=== PATIENT | male | born 1965 | race African-American/Black ===

== ENCOUNTER 2020-07-13 09:32 | Inpatient (IN) | payer SELFPAY ==
[2020-07-13] VITALS (7 sets, daily range): BP systolic 122–145; BP diastolic 72–90
[~2020-07-13] VITALS: Ht 170.2 cm; Wt 83.9 kg
[2020-07-13] MEDS ORDERED: SODIUM CHLORIDE 0.9% 1000ML 1,000 ML IV STA (10:04)
[2020-07-13] MEDS ORDERED: SODIUM CHLORIDE FLUSH 10 ML SYR INJ PRN (10:15)
[2020-07-13] MEDS ORDERED: SODIUM CHLORIDE 0.9% 1000ML 1,000 ML ONE (10:44)
--- NOTE | 2020-07-13 10:47 | Emergency Department Note ---
History of Present Illnes History of Present Illness Chief Complaint: urinating blood History of Present Illness This is a 54 year old male. was doing well until 2 months ago then intermitent problems urinating then 6 hours urinating blood. Historian: Patient Arrival Mode: Car History limited by: condition of the patient (normal) Assembler Musical Equipment Required: No Onset (how long ago): day(s) (2) Location: see above Radiation: Reports non-radiation Severity: moderate Onset quality: sudden Duration (how long): hour(s) (5) Timing of current episode: intermittent Progression: waxing and waning Chronicity: new Context: Denies recent illness, Denies recent surgery, Denies recent immobilization, Denies recent travel, Denies trauma/injury, Denies new medications, Denies hx of DVT/PE, Denies non-compliance w/ medications Relieving factors: none Exacerbating factors: none Associated symptoms: Reports denies other symptoms Treatments prior to arrival: none Past Medical/Family History Physician Review I have reviewed the patient's past medical and family history. Any updates have been documented here. Past Medical History Recent Fever: No Clinical Suspicion of Infectio: No New/Unexplained Change in Ment: No Other Medical History: Glaucoma Other Surgery: left arm surgery Social History Smoking Cessation: Never Smoker Counseling Performed: No Alcohol Use: Occasional Any Illegal Drug Use: No Physically hurt or threatened: No Other Any Pre-Existing Lines (PICC,: No Review of Systems Review of Systems Constitutional: Reports no symptoms EENTM: Reports no symptoms Cardiovascular: Reports no symptoms Respiratory: Reports no symptoms Gastrointestinal: Reports no symptoms Genitourinary: Reports as per HPI Musculoskeletal: Reports no symptoms Integumentary: Reports no symptoms Neurological: Reports no symptoms Psychological: Reports no symptoms Endocrine: Reports no symptoms Hematological/Lymphatic: Reports no symptoms Review of other systems: All other systems negative Physical Exam Related Data Allergies: Coded Allergies: No Known Allergies (Unverified , 07/13/20) Triage Vital Signs Vital Signs Date Time Temp Pulse Resp B/P (MAP) Pulse Ox O2 Delivery O2 Flow Rate FiO2 07/13/20 09:43 97.9 70 18 159/90 100 Room Air Vital signs reviewed: Yes Physical Exam CONSTITUTIONAL Constitutional: Present well-developed, Present well-nourished HENT HENT: Present normocephalic, Present atraumatic, Present oropharynx clear/moist, Present nose normal HENT L/R: Present left ext ear normal, Present right ext ear normal EYES Eyes: Reports PERRL, Reports conjunctivae normal NECK Neck: Present ROM normal, Present supple PULMONARY Pulmonary: Present effort normal, Present breath sounds normal CARDIOVASCULAR Cardiovascular: Present regular rhythm, Present heart sounds normal, Present capillary refill normal, Present normal rate GASTROINTESTINAL Abdominal: Present soft, Present nontender, Present bowel sounds normal GENITOURINARY Genitourinary: Present exam deferred SKIN Skin: Present warm, Present dry MUSCULOSKELETAL Musculoskeletal: Present ROM normal NEUROLOGICAL Neurological: Present alert, Present oriented x 3, Present no gross motor or sensory deficits PSYCHOLOGICAL Psychological: Present mood/affect normal, Present judgement normal Results Laboratory Lab results reviewed: Yes Laboratory comments ua= +large blood , coag= normal, cbc nl except 25, bmp and lft normal Imaging Imaging results reviewed: Yes Impressions [place] [address] Patient Name: REJI SOUZA MR #: [id number] : 1965 Age/Sex: 54/M Req #: [id number] Adm Physician: OSMAN PRATER MD Ordered by: TOMAS FAIRCHILD Report #: [id number] Location: [facility] Room[facility]Bed: [facility] Procedure: [id number] HOPD/CT ABD/PEL W/WO-HOPD Exam Date: 07/13/20 Exam Time: 1334 REPORT STATUS: Signed EXAM: CT Abdomen and Pelvis WITH contrast INDICATION: hematuria with/without iv contrast(hematuria protocol) COMPARISON: None. TECHNIQUE: Abdomen and pelvis were scanned utilizing a multidetector helical scanner from the lung base to the pubic symphysis after administration of IV contrast. Coronal and sagittal reformations were obtained. Routine protocol was performed. Scan was performed when during portal venous phase. IV CONTRAST: 100 mL of Isovue 370 ORAL CONTRAST: None COMPLICATIONS: None RADIATION DOSE: Total DLP: 1695 mGy*cm Estimated effective dose: (DLP x 0.015 x size factor) mSv CTDIvol has been reviewed. It is below the limits set by the Radiation Protocol Committee (RPC). Dose modulation, iterative reconstruction, and/or weight based adjustment of the mA/kV was utilized to reduce the radiation dose to as low as reasonably achievable. FINDINGS: LINES and TUBES: None. LOWER THORAX: There is bibasilar atelectasis. HEPATOBILIARY: There are multiple scattered too small to characterize hypodensities in the liver, likely benign. No biliary ductal dilation. GALLBLADDER: No radio-opaque stones or sludge. No wall thickening. SPLEEN: No splenomegaly. PANCREAS: No focal masses or ductal dilatation. ADRENALS: No adrenal nodules KIDNEYS/URETERS: Kidneys enhance symmetrically. No hydronephrosis. No cystic or solid mass lesions. No stones. There are no filling defects within the opacified ureters. GI TRACT: No abnormal distention, wall thickening, or evidence of bowel obstruction. Appendix is normal. PELVIC ORGANS/BLADDER: There is layering debris within the urinary bladder. The prostate gland is enlarged measuring approximately 6.1 x 6.0 cm and causing mass effect on the posterior urinary bladder. LYMPH NODES: No lymphadenopathy. VESSELS: Unremarkable. PERITONEUM / RETROPERITONEUM: No free air or fluid. BONES: There are mild degenerative changes in the spine. SOFT TISSUES: There is a left fat-containing inguinal hernia. Soft tissues otherwise normal. IMPRESSION: 1. No suspicious renal mass. No filling defects within the opacified collecting system and bilateral ureters. 2. Layering debris within the urinary bladder can be suggestive of urinary tract infection. 3. Prostatomegaly. Correlate for chronic urinary tract outlet obstruction which can be associated with hematuria. Signed by: Leena Carranza MD on 07/13/2020 2:02 PM Dictated By: LEENA CARRANZA MD 01 Transcribed By: TIERRA on 07/13/201401 Critical Care Time Comments i spoke to dr heaven putnam at approx 10am and he said to get a ct scan abd/pelvis without and with iv contrast. spoke to rubber belt splicer benji cheney(dr prater) at 1145hrs and accepts admission of pt. dr putnam notified of ct results Assessment & Plan Medical Decision Making MDM hematuria, coagulopathy, enlarged prostate Assessment & Plan Final Impression: (1) Gross hematuria (2) Enlarged prostate (3) Severe thrombocytopenia Depart Disposition: ADMITTED Last Vital Signs Date Time Temp Pulse Resp B/P (MAP) Pulse Ox O2 Delivery O2 Flow Rate FiO2 07/13/20 09:43 97.9 70 18 159/90 100 Room Air Medications in the ED Sodium Chloride 10 ml PRN PRN INJ IV SITE FLUSH; Start 07/13/20 at 10:15; Stop 08/12/20 at 10:14; Status UNV Sodium Chloride 1,000 ml @ 1,000 mls/hr Q1H STAT IV ; Start 07/13/20 at 10:04; Stop 07/13/20 at 11:03; Status UNV TOMAS FAIRCHILD Jul 13, 2020 10:47
[2020-07-13] MEDS ORDERED: IOPAMIDOL 370 MG/ML 200 ML INFUS..BTL INJ ONE (10:50)
[2020-07-13] MEDS ORDERED: SODIUM CHLORIDE 0.9% 250ML 250 ML ONE ×2 (10:50→22:15)
--- NOTE | 2020-07-13 11:04 | NUR ---
urine culture collected and sent to the lab
[2020-07-13] MEDS ORDERED: ONDANSETRON HCL INJ 2MG/ML 2ML 2 MG/ML VIAL IV PRN (11:45)
--- NOTE | 2020-07-13 12:30 | NUR ---
[facility] contacted for transport
--- NOTE | 2020-07-13 12:47 | NUR ---
Report to MULU Keith
--- NOTE | 2020-07-13 13:54 | NUR ---
RECEIVED REPORT FROM MYRA HARDWICK FROM THE [facility]. PATIENT ARRIVED TO THE UNIT @ 1354 VIA STRETCHER. PATIENT IN STABLE CONDITION, NO S/S OF DISTRESS NOTED. IV SITE ASYMPTOMATIC AND PATENT, TRANSPARENT DRESSING C/D/I. RESPIRATIONS EVEN AND NONLABORED. PATIENT ABLE TO VOICE NEEDS. PATIENT SITTING AT BEDSIDE CHAIR, WHEELS LOCKED.
--- NOTE | 2020-07-13 14:05 | Diagnostic Imaging Report ---
EXAM: CT Abdomen and Pelvis WITH contrast INDICATION: hematuria with/without iv contrast(hematuria protocol) COMPARISON: None. TECHNIQUE: Abdomen and pelvis were scanned utilizing a multidetector helical scanner from the lung base to the pubic symphysis after administration of IV contrast. Coronal and sagittal reformations were obtained. Routine protocol was performed. Scan was performed when during portal venous phase. IV CONTRAST: 100 mL of Isovue 370 ORAL CONTRAST: None COMPLICATIONS: None RADIATION DOSE: Total DLP: 1695 mGy*cm Estimated effective dose: (DLP x 0.015 x size factor) mSv CTDIvol has been reviewed. It is below the limits set by the Radiation Protocol Committee (RPC). Dose modulation, iterative reconstruction, and/or weight based adjustment of the mA/kV was utilized to reduce the radiation dose to as low as reasonably achievable. FINDINGS: LINES and TUBES: None. LOWER THORAX: There is bibasilar atelectasis. HEPATOBILIARY: There are multiple scattered too small to characterize hypodensities in the liver, likely benign. No biliary ductal dilation. GALLBLADDER: No radio-opaque stones or sludge. No wall thickening. SPLEEN: No splenomegaly. PANCREAS: No focal masses or ductal dilatation. ADRENALS: No adrenal nodules KIDNEYS/URETERS: Kidneys enhance symmetrically. No hydronephrosis. No cystic or solid mass lesions. No stones. There are no filling defects within the opacified ureters. GI TRACT: No abnormal distention, wall thickening, or evidence of bowel obstruction. Appendix is normal. PELVIC ORGANS/BLADDER: There is layering debris within the urinary bladder. The prostate gland is enlarged measuring approximately 6.1 x 6.0 cm and causing mass effect on the posterior urinary bladder. LYMPH NODES: No lymphadenopathy. VESSELS: Unremarkable. PERITONEUM / RETROPERITONEUM: No free air or fluid. BONES: There are mild degenerative changes in the spine. SOFT TISSUES: There is a left fat-containing inguinal hernia. Soft tissues otherwise normal. IMPRESSION: 1. No suspicious renal mass. No filling defects within the opacified collecting system and bilateral ureters. 2. Layering debris within the urinary bladder can be suggestive of urinary tract infection. 3. Prostatomegaly. Correlate for chronic urinary tract outlet obstruction which can be associated with hematuria. Signed by: Lamont Alvarado MD on 07/13/2020 2:02 PM
[2020-07-13] MEDS: SODIUM CHLORIDE 0.9% 1000ML 1,000 ML IV SCH ×2 (14:10→23:30)
[2020-07-13] MEDS ORDERED: ACETAMINOPHEN 325 MG TAB PO PRN (15:00)
[2020-07-13] MEDS ORDERED: HYDRALAZINE HCL 20 MG/ML VIAL IV PRN (15:00)
[2020-07-13] MEDS ORDERED: POLYETHYLENE GLYCOL 3350 17 GM PACK PO PRN (15:00)
[2020-07-13] MEDS: FAMOTIDINE 20 MG/2 ML VIAL IV SCH (17:07)
[2020-07-13] MEDS: DOCUSATE SODIUM 100 MG CAP PO SCH (17:07)
--- NOTE | 2020-07-13 18:55 | NUR ---
COMPLETED BEDSIDE SHIFT REPORT AND ROUNDING WITH ON COMING NIGHT NURSE. PATIENT IN STABLE CONDITION, NO S/S OF DISTRESS NOTED. IV FLUIDS INFUSING, SITE ASYMPTOMATIC AND PATENT, TRANSPARENT DRESSING C/D/I. RESPIRATIONS EVEN AND NONLABORED. PATIENT ABLE TO VOICE NEEDS. BED IN LOWEST POSITION AND LOCKED, SIDE RAILS X 2 , NONSKID SOCKS APPLIED. CALL LIGHT WITHIN REACH.
--- NOTE | 2020-07-13 19:00 | NUR ---
Received patient awake, not in distress, at bedside. Call light within easy reach, advised to call anytime when needed, will continue to monitor closely
--- NOTE | 2020-07-13 19:13 | NUR ---
Called and spoke to RT, patient for EKG
--- NOTE | 2020-07-13 19:19 | History and Physical ---
CONSULTING PHYSICIAN: Dr. Aldo Avila with Urology. CHIEF COMPLAINT: "I think my prostate may be enlarged because I have been having difficulty urinating lately". PRIMARY CARE PHYSICIAN: None. HISTORY OF PRESENT ILLNESS: The patient is a 54-year-old male, who was doing well until about 2 months ago, then began having intermittent problems urinating followed by [address] Segovia in the emergency department spoke with Dr. Aldo Avila, who advised getting a CT of the abdomen and pelvis with and without contrast. The patient has been transferred from [facility] to [facility], and I saw him in room 206. PAST MEDICAL HISTORY: Glaucoma. PAST SURGICAL HISTORY: Left arm surgery. FAMILY HISTORY: Paternal grandmother had diabetes mellitus. SOCIAL HISTORY: The patient lives with his and children. He is a fabrication mig welder. He drinks beer on weekends. Denies any previous use of tobacco or illicit drugs. ALLERGIES: NO KNOWN ALLERGIES. HOME MEDICATIONS: Latanoprost for glaucoma. REVIEW OF SYSTEMS: A 14-point review of systems was completed and the patient denies any problems with the following systems. Constitutional, ears, nose, throat, respiratory, psychiatric, integumentary, cardiovascular, musculoskeletal, neurologic, endocrine, lymphatic, immunological. EYES: The patient wears glasses and is known to have glaucoma. GENITOURINARY: As per history of present illness. GASTROINTESTINAL: Mild stomach cramping. He states he did not eat this morning. Last bowel movement was this morning. HEMATOLOGIC: Positive for hematuria. PHYSICAL EXAMINATION: VITAL SIGNS: Temperature 97.9, pulse 70, blood pressure 159/90, respirations 18, and oxygen saturation 100% on room air. Height 5 feet 7 inches. Weight 185 pounds, BMI 28.97. GENERAL: No acute distress, sitting up in a chair at the bedside. LUNGS: Clear to auscultation. Respiratory pattern even and unlabored. HEENT: EOMI. Oropharynx clear. NECK: Supple. No lymphadenopathy, thyromegaly, or JVD. CARDIOVASCULAR: Irregularly irregular. ABDOMEN: Bowel sounds positive. Soft, nontender. EXTREMITIES: Without pitting edema. No clubbing, cyanosis, or signs of DVT. NEUROLOGICAL: GCS 15. Nonfocal. LABORATORY DATA: PT 11.7, INR 1.0. Urinalysis negative for any nitrites, negative for leukocyte esterase, protein 30 mg/dL, large amount of blood. CBC results; WBC 5.7, hemoglobin 15.1, hematocrit 46.6, and platelets 27. Sodium 140, potassium 4.0, chloride 104, CO2 of 26, glucose 106, BUN 22, creatinine 0.9. Creatine kinase 259. Albumin 4.2, alkaline phosphatase 86, ALT 20, amylase 59, AST 23, total bilirubin 1.2, GGT 101, total protein 7.4. Coronavirus PCR collected on 07/13, results are pending. PSA results pending. IMAGING/OTHER: No 12-lead EKG results. CT of the abdomen and pelvis suggestive of UTI, positive for prostatomegaly; correlate for chronic urinary outlet obstruction. ASSESSMENT AND PLAN: 1. Gross hematuria and prostatomegaly and urinary retention. Urology has been consulted, appreciate recommendations. Continue IV fluids normal saline at 125 mL an hour. Orders have been obtained to strain the urine. 2. Thrombocytopenia. Platelet level 27. One jumbo pack of platelets has been ordered. Monitor platelet level closely. Consider Hematology consult if no improvement. 3. Possible urinary tract infection, present on admission. The patient is afebrile. WBC is 5.7. Urinalysis showed a large amount of blood, but no nitrites or leukocyte esterase. Await final results of urine culture and sensitivity. We will hold off on any IV antibiotics at this point. 4. Elevated blood pressure. Blood pressure 159/90. The patient denies taking any antihypertensives at home. We will start hydralazine 10 mg IV every 3 hours p.r.n. for systolic blood pressure greater than 150. Monitor blood pressure. 5. Prophylaxis, Pepcid, ambulatory. History and physical, inpatient, billing code [id number], time spent greater than 60 minutes. Dictated by Nicko Westfall, COBOL APPLICATION DEVELOPER MD DO ArtP/MODL /[id number]
[2020-07-13] MEDS ORDERED: TEMAZEPAM 7.5 MG CAP PO PRN (21:00)
[2020-07-13] MEDS: LATANOPROST(OPTH) 2.5 ML BTL OP SCH (22:00)
[2020-07-14] VITALS (8 sets, daily range): BP systolic 117–159; BP diastolic 77–99
--- NOTE | 2020-07-14 00:39 | NUR ---
Received a call fro the diamond powder technician, patient has 7 beats of Vtach, checked patient in the room, no complaints at this time, he just went to the bathroom to georgette, VS checked BP 109/78, HR 78, HR 20, updated Nicko DOG WALKER, no new order at this time, will continue to monitor patient closely
--- NOTE | 2020-07-14 00:39 | NUR ---
verified with Nicko DENIS, he only ordered 1 jumbo platelet pheresis, informed that RN sent blood specimen for platelet count, will continue to monitor
--- NOTE | 2020-07-14 00:58 | NUR ---
latest platelet count s/p transfusion is 134.
[2020-07-14] MEDS: SODIUM CHLORIDE 0.9% 1000ML 1,000 ML IV SCH ×3 (05:49→19:44)
[2020-07-14 06:20] LABS: CHOL/HDL RATIO 3.9 (3.9-4.7); PHOSPHORUS 2.6 MG/DL (2.3-4.7)
[2020-07-14 06:43] LABS: BASOPHILS % 0.6 % (0.0-1.0); EOSINOPHILS # (AUTO) 0.1 (0.0-0.4); EOSINOPHILS % 1.8 % (0.0-6.0); HEMATOCRIT 42.5 % (38.2-49.6); HEMOGLOBIN 14.8 g/dL (14.0-18.0); LYMPHOCYTES # (AUTO) 1.4 (1.0-3.2); LYMPHOCYTES % 26.1 % (18.0-39.1); MEAN CORPUSCULAR HEMOGLOBIN 31.6 pg (28-32); MEAN CORPUSCULAR HGB CONC 34.8 g/dL (31-35); MEAN CORPUSCULAR VOLUME 90.8 fL (81-99); MONOCYTES # (AUTO) 0.6 (0.2-0.8); MONOCYTES % 11.6 % (4.4-11.3); NEUTROPHILS # (AUTO) 3.2 (2.1-6.9); NEUTROPHILS % 59.7 % (38.7-80.0); RED BLOOD COUNT 4.68 x10e6/uL (4.3-5.7); RED CELL DISTRIBUTION WIDTH 12.8 % (11.7-14.4)
[2020-07-14 06:45] LABS: THYROID STIMULATING HORMONE 1.65 uIU/mL (0.350-4.940)
[2020-07-14 06:49] LABS: ANION GAP 13.1 mmol/L (8-16); BLOOD UREA NITROGEN 13 mg/dL (7-26); BUN/CREATININE RATIO 13 (6-25); CALCIUM 8.7 mg/dL (8.4-10.2); CARBON DIOXIDE 23 mmol/L (22-29); CHLORIDE 108 mmol/L (98-107); CREATININE, SERUM 0.98 mg/dL (0.72-1.25); EST GLOMERULAR FILTRATION RATE > 60 ML/MIN (60-); GLUCOSE 96 mg/dL (74-118); POTASSIUM 4.1 mmol/L (3.5-5.1); SODIUM 140 mmol/L (136-145)
--- NOTE | 2020-07-14 07:00 | NUR ---
RECEIVED REPORT FROM OFF GOING NIGHT NURSE. PATIENT IN STABLE CONDITION, NO S/S OF DISTRESS NOTED. RESPIRATIONS EVEN AND NONLABORED. PATIENT ABLE TO VOICE NEEDS. TELEMETRY APPLIED. IV SITE ASYMPTOMATIC AND PATENT, TRANSPARENT DRESSING C/D/I. BED IN LOWEST POSITION AND LOCKED, SIDE RAILS X 2, NONSKID SOCKS APPLIED. CALL LIGHT WITHIN REACH.
--- NOTE | 2020-07-14 07:06 | NUR ---
consult Dr. Leach-manager military, communicated to anderson c/o diego HARDWICK
--- NOTE | 2020-07-14 07:06 | NUR ---
Spoke to Nicko DENIS, updated re patient's platelet levels baseline 27, 134 1 1/2 hr s/p platelet transfusion, then 40 this morning, consult Dr. Gutiérrez form setter steel forms
[2020-07-14 09:02] LABS: PLATELET COUNT 184 x10e3/uL (140-360)
[2020-07-14] MEDS: DOCUSATE SODIUM 100 MG CAP PO SCH ×2 (09:51→17:49)
[2020-07-14] MEDS: FAMOTIDINE 20 MG/2 ML VIAL IV SCH ×2 (09:51→17:49)
--- NOTE | 2020-07-14 10:24 | NUR ---
NOTIFIED JULISA FAUSTIN NP OF THE PATIENT HAVING A NEW ONSET OF AFIB WITH A BUNDLE BRANCH BLOCK RUNNING @ 80. NO NEW ORDERS RECEIVED.
--- NOTE | 2020-07-14 12:10 | Consultation ---
DATE OF CONSULTATION: 07/14/2020 Cardiac consultation REASON FOR CONSULTATION: Atrial arrhythmias. HISTORY: A 54-year-old gentleman, who is known with glaucoma. The patient for the last two months having difficulty urinating and he is urinating blood sometimes. He thinks his prostate is enlarged. He came to the emergency room and admitted for further management. Noted surprisingly, his platelets are low at 27,000 or so. I do not have this number, it done in the outpatient clinic. The patient was given platelet transfusion. His platelets today 184. There are no petechiae. There are no symptoms to suggest if this ITP or TTP by history. Regardless his cardiac issues for many years, he does have palpitation on and off. It was noted the patient was on telemetry. He got PACs and dropped beats. He got probably three beats of atrial fibrillation, but we cannot find it. Cardiac consultation obtained. The patient denied having any angina or any other problem. He told me in the past, he was seen by fretted instrument repairer for his arrhythmia, which were frequent and now barely happening. He denied having any syncope or presyncope. He denied having any angina or congestive heart failure symptoms. REVIEW OF SYSTEMS: Extensive to all systems, will be summarized for clarity. GENERAL: No fever, no chills. HEENT: No vision problem. No hearing problem. PULMONARY: No cough. No hemoptysis. CARDIAC: No active symptoms. GI: No hematemesis. No melena. : Difficulty urination and blood in his urine. MUSCULOSKELETAL: No aches. No pain. SKIN: No skin rashes. NEUROLOGY: No change in consciousness or any other symptoms. SOCIAL HISTORY: He is . He is a journeyman welder. He is nonsmoker. Probably, he will drink a drink over the weekend. HOME MEDICATIONS: Latanoprost eye drop. ALLERGIES: NONE. PAST MEDICAL HISTORY: 1. Chronic arrhythmia. 2. Hematuria for the last two months. FAMILY HISTORY: Father of construction accident. Mother doing well in her 80s. Four siblings, none with coronary artery disease. Three brother and one sister. There is no family history of sudden cardiac . Two healthy daughters. PHYSICAL EXAMINATION: VITAL SIGNS: Height of 5 feet 7 inches, weight of 185 pounds, blood pressure 130/70, heart rate of 80, and respiratory rate of 18. HEENT: Pupils are reactive. NECK: No elevation of jugular venous pulsation. CHEST: Clear to auscultation and percussion. HEART: PMI at 5th left intercostal space. Normal first and second heart sounds. ABDOMEN: Soft with good bowel sounds. EXTREMITIES: No cyanosis, no clubbing, no edema. LABORATORY DATA: As per chart. EKG showing normal sinus rhythm throughout atrial beat. WPW is suggestive with delta wave. IMPRESSION AND PLAN: 1. Hematuria, workup for progress. 2. Thrombocytopenia, not clear if it is true, but we will leave that up to Hematology because platelet reported being 27 and the patient was given platelet transfusion, and his platelet is perfect today at 184. Regardless, we will leave that up to Hematology and repeated lab needs to be done. I ordered CBC. 3. 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 RECOMMENDATION: Observation on telemetry. Workup for the presentation and workup for platelet if accurate. Pending on the workup for thrombocytopenia, further steps to be done. If this turns to be inaccurate, then we will just recommend observation. I will ask EP to see the patient just to establish relation and to observe him. This can be handled as an outpatient in my opinion, but with his opinion of the EP Service. MD JOJO Reece/CLARISSA /[id number]
--- NOTE | 2020-07-14 12:28 | Diagnostic Imaging Report ---
EXAMINATION: CHEST 2 VIEWS INDICATION: Hematuria suspicious for urinary tract infection. Evaluate for pneumonia. COMPARISON: None FINDINGS: TUBES and LINES: None. LUNGS: Normal lung volumes. Lungs are clear. No consolidations. PLEURA: No pleural effusion or pneumothorax. HEART AND MEDIASTINUM: The cardiomediastinal silhouette is unremarkable. BONES AND SOFT TISSUES: No acute osseous lesion. Soft tissues are unremarkable. UPPER ABDOMEN: No free air under the diaphragm. IMPRESSION: No acute thoracic radiographic abnormality. Signed by: Lamont Alvarado MD on 07/14/2020 12:25 PM
--- NOTE | 2020-07-14 12:36 | Consultation ---
DATE OF CONSULTATION: 07/14/2020 Urology Consultation REASON FOR CONSULTATION: Gross hematuria. HISTORY OF PRESENT ILLNESS: Sai Godoy is a 54-year-old man who denies any previous urological history. Denies any previous hematuria, dysuria, urinary tract infection, or urolithiasis. The patient has had decreased urinary force of stream for quite some time and he has nocturia x1. The patient had severe gross hematuria, reported to the emergency room where he was evaluated, found to be severely thrombocytopenic with platelets of 27,000. He underwent transfusion of platelets. His hematuria has since grossly stopped. PAST MEDICAL/SURGICAL HISTORY: ORIF left arm due to fracture. SOCIAL HISTORY: The patient is a self-employed welder helper, has supportive at the bedside. He denies smoking cigarettes, ethanol, and drug use. He does report smoking cigar occasionally. FAMILY HISTORY: Noncontributory to the active urological problems. CURRENT MEDICATIONS: Please refer to MAR. ALLERGIES: NONE KNOWN. REVIEW OF SYSTEMS: Discussed as above in history of present illness, past medical history, otherwise negative for all systems. PHYSICAL EXAMINATION: GENERAL: Healthy-appearing 54-year-old man lying in bed, in no apparent distress, he is currently afebrile. VITAL SIGNS: Currently stable. ABDOMEN: Soft, nondistended, nontender without costovertebral angle tenderness, kidneys not palpable without hepatosplenomegaly. No obvious evidence of hernia. GENITOURINARY: Testes descended bilaterally. Testes and epididymides bilaterally palpably normal. The patient has a normal uncircumcised male phallus with normal meatus without any lesion. Digital rectal examination is deferred at the present time. For the remaining physical examination systems, please refer to the admission history and physical in the chart. LABORATORY STUDIES: CT scan of the abdomen and pelvis revealed a very large prostate. Unfortunately, the radiologist only read in two dimensions and so we do not have a volume. There was layering debris in the bladder consistent with hematuria, but no other findings relating to the patient's hematuria. The patient platelets were 27,000 at the outpatient Emergency Department, this morning they were increased to 184,000 following transfusion. White blood cell count is 5410, hemoglobin 14.1. The patient's creatinine is normal at 0.98. PSA was ordered and is pending. COVID test is also pending. ASSESSMENT: 1. Benign prostatic hyperplasia. 2. Gross hematuria that resolved. 3. Thrombocytopenia, improved following transfusion. 4. Nocturia. 5. Decreased urinary force of stream. PLANS: 1. I will prescribe the patient Flomax for the enlarged prostate. Please follow up the PSA that was ordered and notify me of the number, especially elevated. 2. The PSA, however, was drawn when the patient had an acute episode including hematuria and may not be a valid test for a screening test. 3. At some point, the patient definitely needs a cystoscopic examination. We will await complete resolution of the patient's thrombocytopenia as well as other medical problems prior to pursuing this test, which may be performed as an outpatient. Thank you much for involving us in care of your patient. We will be happy to follow along with you as well as outpatient. MD RODOLFO Spencer/CLARISSA /[id number]
--- NOTE | 2020-07-14 16:28 | Consultation ---
DATE OF CONSULTATION: 07/14/2020 Initial EP Consultation REASON FOR CONSULTATION: EKG abnormality. HISTORY OF PRESENT ILLNESS: Mr. Godoy is a 54-year-old man who presents to the hospital for decreased ability to urinate. The patient has been worked up for a benign prostatic hyperplasia. Of note, the patient was recently found to have thrombocytopenia for which he had received platelet transfusions. He currently is being worked up for that as well. EP was consulted due to abnormality on EKG. The patient does note some history of palpitations in the past, but generally has not been able to fully describe the details concerning that. EP was consulted to discuss the patient concerned this EKG abnormality. REVIEW OF SYSTEMS: Currently denies having any fevers, chills, lightheadedness, dizziness, discharge the eyes, nose, mouth, swollen lymph nodes in the groin, chest pains, palpitations, shortness of breath, coughing, abdominal pain, nausea, vomiting, dysuria, hematuria, swollen joints, joint pain, numbness, tingling, or weakness. No skin rashes, ulcers, depression, or anxiety. PAST MEDICAL HISTORY: As noted above. PAST SURGICAL HISTORY: No cardiac surgeries. FAMILY HISTORY: No significant family history of early cardiac or sudden arrhythmias. SOCIAL HISTORY: He denies smoking cigarettes, drinking alcohol, or using illicit drugs. ALLERGIES: PLEASE SEE MAR. MEDICATIONS: Please see MAR. PHYSICAL EXAMINATION: VITAL SIGNS: Temperature is 98.7, heart rate currently is sinus in the 80s, and blood pressure 132/77, respiratory rate 12. GENERAL: No acute distress. Alert, awake, oriented x3. HEENT: Normocephalic, atraumatic. Pupils equal, reactive to light. LYMPH NODES: No lymphadenopathy appreciated. CVS: S1, S2. Regular rate and rhythm. RESPIRATORY: Good air entry globally. No wheezing. ABDOMEN: Soft, nontender. : No bladder fullness. No CVA tenderness. MUSCULOSKELETAL: No effusions or erythema noted in the knees or elbows bilaterally. NEURO: Moves all extremities spontaneously. No focal deficits. EXTREMITIES: No edema in lower extremities or upper extremities bilaterally. SKIN: No bruising. No ulcers. PSYCH: Mood is normal. Answers questions appropriately. LABORATORY DATA: WBC is 5.4, hemoglobin 14.8, platelet is 184. Creatinine 0.9. EKG sinus rhythm, heart rate in the 80s. ASSESSMENT AND PLAN: Mr. Godoy is a 54-year-old male with a history of benign prostatic hyperplasia, incidentally found to have thrombocytopenia, which currently he is undergoing workup. He has demonstrated EKG abnormalities, which upon review appears to be sinus rhythm with second-degree sinoatrial exit block. The patient's heart rate is normal and this ended up in itself and does not necessarily require any acute intervention from EP standpoint. The patient's EKG does demonstrate what can possibly be evidence of pre-excitation, which would appear to be coming from the left-sided anterolateral region. Given his history of palpitations, this can warrant further workup for electrophysiology study and possible ablation if the patient does in fact have evidence of accessory pathway. This can be done as an outpatient. I have described to the patient that we can discuss further detail in the clinic. I will give him contact information of my clinic for him follow up on outpatient basis and I discussed to his , who was at bedside and they are agreeable. I have asked to communicate with the Cardiology Service. Thank you very much for allowing us to participate in Mr. Godoy's care. Please feel free to call if questions. DO JOSE TSANG/CLARISSA /[id number]
[2020-07-14 18:05] LABS: BASOPHILS % 0.9 % (0.0-1.0); EOSINOPHILS # (AUTO) 0.1 (0.0-0.4); EOSINOPHILS % 2.2 % (0.0-6.0); HEMATOCRIT 45.2 % (38.2-49.6); HEMOGLOBIN 15.3 g/dL (14.0-18.0); LYMPHOCYTES # (AUTO) 1.4 (1.0-3.2); LYMPHOCYTES % 31.2 % (18.0-39.1); MEAN CORPUSCULAR HEMOGLOBIN 31.4 pg (28-32); MEAN CORPUSCULAR HGB CONC 33.8 g/dL (31-35); MEAN CORPUSCULAR VOLUME 92.6 fL (81-99); MONOCYTES # (AUTO) 0.4 (0.2-0.8); MONOCYTES % 8.7 % (4.4-11.3); NEUTROPHILS # (AUTO) 2.6 (2.1-6.9); NEUTROPHILS % 56.6 % (38.7-80.0); RED BLOOD COUNT 4.88 x10e6/uL (4.3-5.7); RED CELL DISTRIBUTION WIDTH 12.6 % (11.7-14.4)
[2020-07-14 18:15] LABS: PLATELET COUNT 184 x10e3/uL (140-360)
--- NOTE | 2020-07-14 18:53 | Progress Note ---
DATE: 07/14/2020 EVENTS OVERNIGHT: I received a call last night or early this morning that the patient's followup platelet level was 40 after receiving Jumbo platelets. I explained to the patient that his platelet level was still low after receiving platelets and that I had consulted Dr. Gonzales Leach with Hematology, did take a closer look; however, I found out later that this was a poor sample that was "clumped" and that the value was not 40, but likely 134 or 184. His most recent platelet level is actually 184. CONSULTING PHYSICIANS: 1. Dr. Gonzales Leach with Hematology. 2. Dr. Leyva with Cardiology. 3. Dr. Aldo Avila with Urology. 4. Dr. Unruly Pena with Electrophysiology. SUBJECTIVE: The patient out of bed, sitting up in a chair. Based on his previous review of systems, the patient currently denies any stomach cramping or weakness. He is eating and the color of his urine is clearing. No new complaints. OBJECTIVE: VITAL SIGNS: Temperature 97.9, pulse 137/79, respirations 18, and oxygen saturation 100%. Intake and output, 2105 mL in and 880 mL out. GENERAL: In acute distress. LUNGS: Clear to auscultation. No supplemental oxygen. HEENT: EOMI. NECK: Supple. CARDIOVASCULAR: Irregularly irregular. ABDOMEN: Bowel sounds positive. Soft, nontender. EXTREMITIES: No pitting edema. No clubbing, cyanosis, or signs of DVT. NEUROLOGIC: GCS 15, nonfocal. LABORATORY DATA: At 00:30 this morning, platelet count 134; about 5 o'clock in the morning WBCs 5.41, hemoglobin 14.8, hematocrit 42.5; and platelets 184. Sodium 140, potassium 4.1, chloride 108, CO2 of 23, BUN 13, creatinine 0.98, estimated GFR greater than 60, hemoglobin A1c 5.5%, phosphorus 2.6, and magnesium 2.0. Triglycerides 112, cholesterol 213, LDL 136, and HDL 55. TSH 1.65. Preliminary urine culture shows no growth after 18 to 24 hours. PSA remains pending. LABS AND IMAGING/OTHER: Chest x-ray done today shows no acute thoracic radiographic abnormality. A 12-lead EKG done on 07/13 showed sinus rhythm with premature ventricular complexes or fusion complexes with a ventricular rate of 76. There are obvious pauses with four beats and pause, another four beats, and pause, repeating. Per telemetry just after midnight, the patient had a small run of V-tach at least five beats counted at the end of this strip. On 07/14, 12-lead EKG showed sinus rhythm with blocked premature atrial complexes, similar to the previous pattern in the EKG dated 07/13. This 12-lead EKG on 07/14 has a pause after three beats, thus there were three beats and a pause, then three beats and it repeats. ASSESSMENT AND PLAN: 1. Severe thrombocytopenia. Platelet level 27 on admission, one Jumbo pack of platelets was given last night. RN had called regarding plate level 40 after the Jumbo unit of platelets; however, this was erroneous lab result and his platelet level is currently 184. Hematology was consulted and the level of 40 was obtained, we will go ahead and await their recommendations. 2. 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 Cardiology consulted. Continue to observe on telemetry. Dr. Leyva With Cardiology is consulted, Electrophysiology to see the patient just to establish relation and to observe him. 3. Gross hematuria and prostatomegaly with urinary retention. Urology following, urine to be strained. Flomax has been started. The patient will need a cysto later. 4. Elevated blood pressure. Blood pressure yesterday 159/90, today 137/79. No use of antihypertensives at home. Continue p.r.n. hydralazine. Monitor blood pressure. 5. Hyperlipidemia. Cholesterol 213, LDL 136. We will start simvastatin. 6. Prophylaxis. Pepcid, ambulatory. 7. Inpatient, billing code [id number]. Time spent greater than 35 minutes. Dictated by Nicko Westfall, CIRA MD DO ArtP/AVINASHL /[id number]
--- NOTE | 2020-07-14 19:24 | NUR ---
COMPLETED BEDSIDE SHIFT REPORT AND ROUNDING WITH ON COMING NIGHT NURSE. PATIENT IN STABLE CONDITION, NO S/S OF DISTRESS NOTED. IV FLUIDS INFUSING, SITE ASYMPTOMATIC AND PATENT, TRANSPARENT DRESSING C/D/I. TELEMETRY APPLIED. RESPIRATIONS EVEN AND NONLABORED. PATIENT ABLE TO VOICE NEEDS. BED IN LOWEST POSITION AND LOCKED, SIDE RAILS X 2 , NONSKID SOCKS APPLIED. CALL LIGHT WITHIN REACH.
[2020-07-14] MEDS: LATANOPROST(OPTH) 2.5 ML BTL OP SCH (20:10)
[2020-07-14] MEDS ORDERED: SIMVASTATIN 20 MG TAB PO SCH (21:00)
[2020-07-14] MEDS ORDERED: TAMSULOSIN HCL 0.4 MG CAP PO SCH (21:00)
[2020-07-15 03:36] VITALS: BP 124/79
[2020-07-15] MEDS: SODIUM CHLORIDE 0.9% 1000ML 1,000 ML IV SCH (03:38)
[2020-07-15 06:13] LABS: BASOPHILS % 0.7 % (0.0-1.0); EOSINOPHILS # (AUTO) 0.1 (0.0-0.4); EOSINOPHILS % 3.3 % (0.0-6.0); HEMATOCRIT 42.5 % (38.2-49.6); HEMOGLOBIN 14.5 g/dL (14.0-18.0); LYMPHOCYTES # (AUTO) 1.3 (1.0-3.2); LYMPHOCYTES % 31.8 % (18.0-39.1); MEAN CORPUSCULAR HEMOGLOBIN 31.9 pg (28-32); MEAN CORPUSCULAR HGB CONC 34.1 g/dL (31-35); MEAN CORPUSCULAR VOLUME 93.6 fL (81-99); MONOCYTES # (AUTO) 0.5 (0.2-0.8); NEUTROPHILS # (AUTO) 2.2 (2.1-6.9); NEUTROPHILS % 51.7 % (38.7-80.0); RED BLOOD COUNT 4.54 x10e6/uL (4.3-5.7); RED CELL DISTRIBUTION WIDTH 12.5 % (11.7-14.4)
[2020-07-15 06:19] LABS: PLATELET COUNT 169 x10e3/uL (140-360)
--- NOTE | 2020-07-15 06:19 | NUR ---
Left message with answering service for Gonzales Myers ( Esme) to make sure MD aware of consult.
[2020-07-15 06:29] LABS: ALANINE AMINOTRANSFERASE 14 IU/L (0-55); ALBUMIN 3.6 g/dL (3.5-5.0); ALBUMIN/GLOBULIN RATIO 1.2 (0.8-2.0); ALKALINE PHOSPHATASE 65 IU/L (40-150); ANION GAP 9.4 mmol/L (8-16); BLOOD UREA NITROGEN 11 mg/dL (7-26); BUN/CREATININE RATIO 11 (6-25); CALCIUM 8.6 mg/dL (8.4-10.2); CARBON DIOXIDE 25 mmol/L (22-29); CHLORIDE 110 mmol/L (98-107); CREATININE, SERUM 1.01 mg/dL (0.72-1.25); EST GLOMERULAR FILTRATION RATE > 60 ML/MIN (60-); GLUCOSE 99 mg/dL (74-118); POTASSIUM 4.4 mmol/L (3.5-5.1); SODIUM 140 mmol/L (136-145)
--- NOTE | 2020-07-15 07:07 | NUR ---
Bedside report and walking rounds completed with oncoming nurse. Patient in chair. No issues or concerns noted. POC updated with patient.
[2020-07-15 08:00] VITALS: BP 118/73
[2020-07-15 08:02] VITALS: BP 118/73
[2020-07-15] MEDS: FAMOTIDINE 20 MG/2 ML VIAL IV SCH (08:31)
[2020-07-15] MEDS: DOCUSATE SODIUM 100 MG CAP PO SCH (08:33)
--- NOTE | 2020-07-15 09:46 | Consultation ---
DATE OF CONSULTATION: 07/15/[address] Mcrae for this consultation. HISTORY OF PRESENT ILLNESS: This is a very pleasant 54-year-old gentleman with no significant medical history, admitted with worsening dysuria, intermitted difficulty urination with hematuria. The patient admitted with CBC shows hemoglobin was 14 with platelet counts were 134. Hospital course shows normal platelet counts. Kidney function was normal. Slightly elevated total bilirubin. The patient also had CT abdomen shows normal spleen. It also showed possible urinary tract infection. The patient feels mild fatigue, lethargic and tired. He has been followed with web designer for abnormal rhythm with second degree sinoatrial exit block. PAST MEDICAL HISTORY: Glaucoma. ALLERGIES: NKDA. MEDICATION LIST: Reviewed. REVIEW OF SYSTEMS: A 12-point reviewed as per HPI. SOCIAL HISTORY: Denies smoking, alcohol, or drugs. He works as a welder pipe making. Drinks alcohol occasionally. PHYSICAL EXAMINATION: GENERAL: Alert, awake, communicative. HEENT: Normocephalic and atraumatic. Sclerae pink. Conjunctivae clear. NECK: Supple. CHEST: Decreased breath sounds on the bases. CARDIOVASCULAR: Regular rate and rhythm. ABDOMEN: Soft. EXTREMITIES: No edema. LABORATORIES AND IMAGING: Reviewed. ASSESSMENT AND PLAN: The patient with history of multiple medical condition, I am currently followin. Thrombocytopenia. 2. One episode of low platelet count. 3. Repeated platelet counts are normal. 4. Clinically, no evidence of any bleeding. RECOMMENDATION: 1. Close observation. 2. We will follow. 3. Mild neutropenia with benign ethnic neutropenia. 4. We will follow flow cytometry. 5. Clinical condition stable. MD JUAN Cortes/MODL /[id number]
[2020-07-15 12:00] VITALS: BP 123/83
[2020-07-15] MEDS ORDERED: FLOMAX0.4 MG PO (14:14)
[2020-07-15] MEDS ORDERED: ACETAMINOPHEN325 M1 PO (14:14)
[2020-07-15] MEDS ORDERED: SIMVASTATIN20 MG PO (14:14)
[2020-07-15] MEDS ORDERED: XALATAN2.5 ML OP (14:14)
[2020-07-15 15:50] VITALS: BP 135/84
--- NOTE | 2020-07-15 16:23 | NUR ---
Pt discharged home at this time. Pt is aox4 and able to verbalize needs. Denies any pain at time of discharge. Pt verbalized understanding of all discharge instructions and follow up appointments. Pt was discharged home with 3 prescriptions and has understanding of new medications.
--- NOTE | 2020-07-15 18:08 | Discharge Summary ---
PRIMARY CARE PHYSICIAN: None. CONSULTING PHYSICIANS: 1. Dr. Gonzales Leach with Hematology. 2. Dr. Dominick Leyva with Cardiology. 3. Dr. Aldo Avila with Urology. 4. Dr. Unruly Pena with Electrophysiology. CHIEF COMPLAINT: Possible prostate enlargement. HISTORY OF PRESENT ILLNESS: The patient is a 54-year-old male, who was doing well until about 2 months prior to admission, then began having intermittent problems urinating followed by [address] Segovia in the Emergency Department at [facility] spoke with Dr. Aldo Avila, who advise getting a CT of the abdomen and pelvis with and without contrast. The patient was subsequently transferred to [facility]. CT was suggestive of UTI, positive for prostatomegaly. Per the radiologist, needed to be correlated for chronic urinary outlet obstruction. Please refer to history and physical done on 07/13/2020, for past medical, surgical, family, and social history. ADMITTING DIAGNOSES: 1. Gross hematuria, prostatomegaly, and urinary retention. 2. Thrombocytopenia. 3. Possible urinary tract infection, present on admission. 4. Elevated blood pressure. 5. Hyperlipidemia. DISCHARGE DIAGNOSES: 1. Episodic thrombocytopenia with benign ethnic neutropenia. 2. 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 3. Gross hematuria and prostatomegaly with urinary retention. 4. Episodic elevated blood pressure. 5. Hyperlipidemia. HOSPITAL COURSE: On admission; the patient's platelets were 27. On the night of 07/13, I received a phone call regarding the patient's platelet level being 40; however, later discovered that this was apparently a poor sample that was "clumped" and that the value was not actually 40, but likely 134 or 184. At that time, the level of 40 was concerning as the patient had already received a jumbo unit of platelets, thus that triggered my consulting Dr. Leach with Hematology, who saw and evaluated the patient and determined that this was one episode of low platelet count. Repeated platelet counts were normal and clinically, there was no evidence of any bleeding. In his note, Dr. Leach also lists mild neutropenia with benign ethnic neutropenia and states that he will follow up flow cytometry. All consultants are agreeable to the patient being discharged home today. Per Cardiology note, the patient had atrial arrhythmias and possible WPW, chronic, not acute, and Dr. Leyva with Cardiology consulted electrophysiology to see the patient mainly to establish relation and to observe him. According to the consultation note by Dr. Ana Hong, the EKG abnormalities appear to be sinus rhythm with second-degree sinoatrial exit block. There is no acute intervention needed from an Electrophysiology standpoint. Per her note, given his history of palpitations, this can warrant further workup for electrophysiology study and possible ablation if the patient does in fact have evidence of accessory pathway, which can all be done on an outpatient basis. The patient's urinary output was observed along with monitoring for clearing and straining. Per Urology recommendations, Flomax was started and the patient will be discharged on Flomax. He will need a cystoscopy on an outpatient basis. Blood pressure had been elevated at 159/90. Today, the patient's vital signs; temperature 98.1, pulse 72, blood pressure 118/73, respirations 20, oxygen saturation 100%. WBC 4.18, hemoglobin 14.5, hematocrit 42.5, and platelets 169. Sodium 140, potassium 4.4, chloride 110, CO2 of 25, BUN 11, creatinine 1.01, estimated GFR greater than 60. Glucose 99, calcium 8.6, total bilirubin 1.6. LFTs were within normal limits. Cholesterol had been 213, LDL had been 136. Hemoglobin A1c 5.5%. TSH 1.65. Prostate-specific antigen is still pending. Stool for occult blood done on 07/14/2020, was positive. On 07/13, coronavirus PCR was negative. Final urine culture showed no growth after 36 to 48 hours. Chest x-ray had shown no acute thoracic radiographic abnormality. The patient will need to follow up with Dr. Mcrae in 1 to 2 weeks, follow up with Dr. Avila in 3 to 4 weeks, follow up with Dr. Leach if directed and he can call his office to make an appointment. The patient to follow up with Dr. Hong in clinic. The patient to resume cardiac diet. Activity level as tolerated. Prescription for Flomax, simvastatin, and Tylenol was provided. Dictated by Nicko Westfall NP Heriberto Mcrae MD HWP/MODL /[id number]
== END 2020-07-15 16:23 | disposition home or self-care (01) | DRG 726 ==
LOC: FSED 09:52 → ERHOLD 12:06 → MED/SURG2 13:54
PROVIDERS: ADMIT Internal Medicine; ATTEND Internal Medicine
PROC: 30233R1 Transfusion of Nonautologous Platelets into Peripheral Vein, Percutaneous Approach (ICD-10-PCS; principal; 2020-07-13)
DX: N40.1 Benign prostatic hyperplasia with lower urinary tract symptoms (principal); N39.0 Urinary tract infection, site not specified; R35.1 Nocturia; R39.12 Poor urinary stream; R31.0 Gross hematuria; D69.6 Thrombocytopenia, unspecified; I45.6 Pre-excitation syndrome; E78.5 Hyperlipidemia, unspecified; R03.0 Elevated blood-pressure reading, without diagnosis of hypertension; D70.8 Other neutropenia; I45.5 Other specified heart block; Z20.828 Contact with and (suspected) exposure to other viral communicable diseases
CPT/HCPCS: 36415; 71046; 74178; 80048; 80053; 80061; 81003; 82270; 82607; 82746; 83036; 83735; 84100; 84152; 84443; 85025; 85049; 85610; 86850; 86900; 87086; 88184; 93005; 93306; 99284; J7030; J7050; P9034; Q9967; U0002